=== PATIENT | female | born 1995 | race Two or more races ===

== ENCOUNTER 2018-10-18 04:46 | Emergency (ER) | payer OTHER ==
[~2018-10-18] VITALS: Ht 165.1 cm; Wt 71.3 kg
[2018-10-18 04:53] VITALS: Ht 165.1 cm; Wt 71.3 kg
[2018-10-18 06:33] VITALS: BP 106/84
== END 2018-10-18 06:33 | disposition home or self-care (01) ==
LOC: ED 04:46
DX: M25.512 Pain in left shoulder (principal); M75.80 Other shoulder lesions, unspecified shoulder

== ENCOUNTER 2019-01-20 14:01 | Emergency (ER) | payer OTHER ==
[~2019-01-20] VITALS: Ht 165.1 cm; Wt 70.3 kg
[2019-01-20 14:42] VITALS: BP 112/72; Ht 165.1 cm; Wt 70.3 kg
== END 2019-01-20 18:23 | disposition home or self-care (01) ==
LOC: ED 14:01
DX: J02.9 Acute pharyngitis, unspecified (principal); M79.10 Myalgia, unspecified site